=== PATIENT | female | born 1980 | race African-American/Black ===

== ENCOUNTER 2020-12-31 08:49 | Emergency (ER) | payer OTHER ==
[~2020-12-31] VITALS: Ht 165.1 cm; Wt 64.0 kg
[2020-12-31] MEDS ORDERED: LORAZEPAM 2MG/ML CPJ IV STA (09:02)
[2020-12-31] MEDS ORDERED: OLANZAPINE 10 MG/VIAL IM STA (09:02)
[2020-12-31 09:11] VITALS: BP 147/88
[2020-12-31] MEDS ORDERED: SODIUM CHLORIDE 0.9% 1,000 ML IV ONE (09:15)
== END 2020-12-31 09:43 ==
LOC: ER 08:49
DX: F10.129 Alcohol abuse with intoxication, unspecified (principal); Y90.9 Presence of alcohol in blood, level not specified
CPT/HCPCS: 99283; J7030